=== PATIENT | female | born 1955 | race American Indian/Alaskan Native ===

== ENCOUNTER 2019-03-07 21:50 | Emergency (ER) | payer MEDICARE, OTHER ==
[2019-03-07] MEDS ORDERED: NACL 0.9% 1000 ML 2,000 ML IV ONE (22:56)
[2019-03-07 23:19] LABS: Hematocrit 37.7 % (30.3-42.9); Hemoglobin 12.7 gm/dl (10.1-14.3); Mean Corpuscular HGB Conc 34 % (30-34); Mean Corpuscular Volume 86 fl (79-97); Platelet Count 204 K/mm3 (140-440); Red Blood Count 4.37 M/mm3 (3.65-5.03); Red Cell Distribution Width 15.3 % (13.2-15.2)
[2019-03-07 23:33] LABS: Albumin 4.1 g/dL (3.9-5); Calcium 9.6 mg/dL (8.4-10.2)
[2019-03-07 23:39] LABS: Bilirubin,Urine NEG (Negative); Blood,Urine NEG (Negative); Color,Urine Yellow (Yellow); Mucus,Urine 3+ /HPF; Protein,Urine <15 mg/dL mg/dL (Negative); Urobilinogen,Urine < 2.0 mg/dL (<2.0)
--- NOTE | 2019-03-07 23:57 | XRay Report ---
PROCEDURE: XR CHEST 1V AP TECHNIQUE: Chest radiograph single view. HISTORY: weak , low bp COMPARISONS: None . FINDINGS: Heart: Normal. Mediastinum/Vessels: Normal. Lungs/Pleural space: Normal. Bony thorax: No acute osseous abnormality. Life support devices: None. IMPRESSION: No acute cardiopulmonary abnormality. This document is electronically signed by Antonia Rucker DO., March 07 2019 11:55:08 PM ET
--- NOTE | 2019-03-08 00:56 | Cat Scan Report ---
PROCEDURE: CT ABDOMEN PELVIS WO CON TECHNIQUE: Routine axial imaging was obtained of the abdomen and pelvis without oral or IV contrast. Sagittal and coronal reconstructions were reviewed. HISTORY: weak hx fo diarrhea COMPARISONS: None FINDINGS: Images through the lung bases reveal bilateral small effusions. There is a 7.1 mm noncalcified nodule in the left lower lobe. The liver is normal in size and reveal scattered benign appearing calcifications. The gallbladder and biliary tree appear normal. The pancreas, spleen, and adrenal glands appear normal. The kidneys show no evidence of hydronephrosis. There is a 1 mm nonobstructing calcifications centrally in the left k idney. The abdominal aorta is normal in caliber. The bowel loops are normal in caliber. There is circumferential mucosal thickening in the colon exten ding from the mid transverse colon to include the descending colon and sigmoid colon compatible with colitis. The appendix is not enlarged. The small bowel loops are normal in caliber. There is a small umbilical hernia containing omental fat. There is no evidence of free fluid or adeno maryann. In the pelvis the uterus and bladder appear normal. The skeletal structures reveal degenerativ e arthritic changes of the lower lumbar spine. IMPRESSION: Nonspecific colitis involving the mid transverse colon, descending colon and sigmoid colon. Small pleural effusions. 7.1 mm noncalcified nodule on the left lower lobe. Follow-up study is recomm ended in 3-6 months to confirm stability. Scattered calcifications in the liver most likely inflammatory in origin. Small umbilical hernia containing omental fat. Degenerative arthritic changes in the lower lumbar spine.. This document is electronically signed by Harvey Edmonds MD., March 08 2019 12:55:02 AM ET
--- NOTE | 2019-03-08 01:06 | Emergency Department Report ---
ED General Adult HPI - General Chief complaint: Weakness Stated complaint: DIZZINESS/DIARRHEA Time Seen by Provider: 03/07/19 22:12 Source: patient, family, EMS (ems notes not available at time of chart dictation), RN notes reviewed Mode of arrival: Stretcher Limitations: Physical Limitation, Other (patient is demented. Patient is a poor historian.) - History of Present Illness Initial comments: Physician 63-year-old female. The patient is not known to this provider previously. Patient is a resident at a local assisted living facility. The patient presents to the emergency room today with a complaint of "I don't know which wrong with me." Apparently, the patient was sent to the emergency room by her assisted-living facility for evaluation of diarrhea. The patient doesn't know how long she's been having diarrhea 4. She denies physical pain at this time. She is asking to eat and drink. Apparently, the patient was found with an unknown pill next to her, questionable diet pill. She's not sure what it is. She doesn't believe that she is taking it, but she is not certain. The patient is accompanied by her brother, Mr. Andrea Murphy; [phone] He reports the patient appears to be at her baseline. He does not think that there is anything quite out of the ordinary about her today. He is currently asking to take her back to [facility] -: unknown (apparently diarrhea happened today. However, patient cannot recall.) Severity scale (0 -10): 0 Quality: other (patient not able to describe qualitative nature of symptoms, and she reports that she's not having any symptoms, with the exception of resolved diarrhea.) Consistency: other (there is no consistency that the patient can recall.) Improves with: other (patient indicates no exacerbating or relieving factors that she is aware of.) - Related Data Previous Rx's Medication Instructions Recorded Last Taken Type Ciprofloxacin HCl [Cipro] 500 mg PO BID #10 tablet 03/08/19 Unknown Rx metroNIDAZOLE [Flagyl] 500 mg PO Q8HR #15 tab 03/08/19 Unknown Rx Allergies Allergy/AdvReac Type Severity Reaction Status Date / Time insulin detemir Allergy Unknown Verified 03/07/19 22:15 [From Levemir U-100 Insulin] metformin Allergy Unknown Verified 03/07/19 22:15 pravastatin [From Pravachol] Allergy Unknown Verified 03/07/19 22:15 simvastatin Allergy Unknown Verified 03/07/19 22:15 ED Review of Systems ROS: Stated complaint: DIZZINESS/DIARRHEA Other details as noted in HPI Constitutional: malaise, weakness. denies: fever Eyes: denies: vision change ENT: denies: epistaxis Respiratory: denies: wheezing Cardiovascular: denies: chest pain Gastrointestinal: diarrhea. denies: nausea, vomiting Genitourinary: denies: dysuria Musculoskeletal: denies: back pain Skin: denies: lesions Neurological: weakness (chronic weakness), confusion (chronic confusion) ED Past Medical Hx - Past Medical History Previous Medical History?: Yes Hx Diabetes: Yes Hx Dementia: Yes Additional medical history: hypothyroidism, hypercholesterolemia - Surgical History Past Surgical History?: Yes Additional Surgical History: tubal ligation - Social History Smoking Status: Never Smoker Substance Use Type: None - Medications Home Medications: Home Medications Medication Instructions Recorded Confirmed Last Taken Type Ciprofloxacin HCl [Cipro] 500 mg PO BID #10 tablet 03/08/19 Unknown Rx metroNIDAZOLE [Flagyl] 500 mg PO Q8HR #15 tab 03/08/19 Unknown Rx ED Physical Exam - General Limitations: Other (patient is demented. Patient is a poor historian) General appearance: alert, in no apparent distress - Head Head exam: Present: atraumatic, normocephalic - Eye Eye exam: Present: normal appearance, EOMI. Absent: nystagmus - ENT ENT exam: Present: normal exam, normal orophraynx, mucous membranes moist, normal external ear exam - Neck Neck exam: Present: normal inspection, full ROM. Absent: tenderness, meningismus - Respiratory Respiratory exam: Present: normal lung sounds bilaterally. Absent: respiratory distress - Cardiovascular Cardiovascular Exam: Present: regular rate, normal rhythm, normal heart sounds. Absent: bradycardia, tachycardia, irregular rhythm, systolic murmur, diastolic murmur, rubs, gallop - GI/Abdominal GI/Abdominal exam: Present: soft. Absent: distended, tenderness, guarding, rebound, rigid, pulsatile mass - Rectal Rectal exam: Present: normal inspection, other (chaperoned by CHARLINE Guardado). Absent: heme (-) stool, black stool, bloody stool - Extremities Exam Extremities exam: Present: normal inspection, full ROM, other (2+ pulses noted in the bilateral upper, lower extremities. Compartments soft. No long bony tenderness. The pelvis is stable.). Absent: tenderness, joint swelling, calf tenderness - Back Exam Back exam: Present: normal inspection, full ROM. Absent: tenderness, CVA tenderness (R), paraspinal tenderness, vertebral tenderness - Neurological Exam Neurological exam: Present: alert (history is alert to name. Patient follows commands.), other (Extraocular movements intact. Tongue midline. No facial droop. Facial sensation intact to light touch in the V1, V2, V3 distribution bilaterally. 5 and 5 strength in 4 extremities.. Sensation is intact to light touch in 4 extremities.). Absent: motor sensory deficit - Psychiatric Psychiatric exam: Present: flat affect - Skin Skin exam: Present: warm, dry, intact, normal color. Absent: rash ED Course Vital Signs 03/07/19 03/07/19 03/07/19 22:04 22:09 23:37 Temperature 98.2 F 99.3 F Pulse Rate 87 Respiratory 12 15 Rate Blood Pressure 96/60 Blood Pressure 96/60 [Right] O2 Sat by Pulse 96 100 Oximetry 03/08/19 00:00 Temperature Pulse Rate 82 Respiratory 15 Rate Blood Pressure 96/62 Blood Pressure [Right] O2 Sat by Pulse 95 Oximetry - Reevaluation(s) Reevaluation #1: 03/08/19 01:14 Serum toxicology studies unremarkable. Medications reviewed at this point in time. Reevaluation #2: 03/08/19 01:22 Blood pressure 102/70. It is improving. Belly soft on repeat exam. Patient suitable for discharge. ED Medical Decision Making - Lab Data Result diagrams: 03/07/19 22:53 03/07/19 22:53 Vital Signs 03/07/19 03/07/19 03/07/19 22:04 22:09 23:37 Temperature 98.2 F 99.3 F Pulse Rate 87 Respiratory 12 15 Rate Blood Pressure 96/60 Blood Pressure 96/60 [Right] O2 Sat by Pulse 96 100 Oximetry 03/08/19 00:00 Temperature Pulse Rate 82 Respiratory 15 Rate Blood Pressure 96/62 Blood Pressure [Right] O2 Sat by Pulse 95 Oximetry Lab Results 03/07/19 03/07/19 03/07/19 Range/Units 22:53 22:53 23:00 WBC 8.7 (4.5-11.0) K/mm3 RBC 4.37 (3.65-5.03) M/mm3 Hgb 12.7 (10.1-14.3) gm/dl Hct 37.7 (30.3-42.9) % MCV 86 (79-97) fl MCH 29 (28-32) pg MCHC 34 (30-34) % RDW 15.3 H (13.2-15.2) % Plt Count 204 (140-440) K/mm3 Sodium 139 (137-145) mmol/L Potassium 3.9 (3.6-5.0) mmol/L Chloride 100.7 (98-107) mmol/L Carbon Dioxide 26 (22-30) mmol/L Anion Gap 16 mmol/L BUN 7 (7-17) mg/dL Creatinine 1.5 H (0.7-1.2) mg/dL Estimated GFR 42 ml/min BUN/Creatinine Ratio 5 % Glucose 207 H (65-100) mg/dL Calcium 9.6 (8.4-10.2) mg/dL Magnesium 2.10 (1.7-2.3) mg/dL Total Bilirubin 0.60 (0.1-1.2) mg/dL AST 21 (5-40) units/L ALT 14 (7-56) units/L Alkaline Phosphatase 76 (35-129) units/L Total Creatine Kinase 241 H (30-135) units/L Total Protein 6.6 (6.3-8.2) g/dL Albumin 4.1 (3.9-5) g/dL Albumin/Globulin Ratio 1.6 % Lipase 17 (13-60) units/L Urine Color Yellow (Yellow) Urine Turbidity Slightly-cloudy (Clear) Urine pH 5.0 (5.0-7.0) Ur Specific [place] 1.009 (1.003-1.030) Urine Protein <15 mg/dl (Negative) mg/dL Urine Glucose (UA) Neg (Negative) mg/dL Urine Ketones Neg (Negative) mg/dL Urine Blood Neg (Negative) Urine Nitrite Neg (Negative) Urine Bilirubin Neg (Negative) Urine Urobilinogen < 2.0 (<2.0) mg/dL Ur Leukocyte Esterase Neg (Negative) Urine WBC (Auto) 6.0 (0.0-6.0) /HPF Urine RBC (Auto) 1.0 (0.0-6.0) /HPF U Epithel Cells (Auto) < 1.0 (0-13.0) /HPF Urine Mucus 3+ /HPF Salicylates (2.8-20.0) mg/dL Acetaminophen (10.0-30.0) ug/mL 03/07/19 03/07/19 Range/Units 23:18 23:18 WBC (4.5-11.0) K/mm3 RBC (3.65-5.03) M/mm3 Hgb (10.1-14.3) gm/dl Hct (30.3-42.9) % MCV (79-97) fl MCH (28-32) pg MCHC (30-34) % RDW (13.2-15.2) % Plt Count (140-440) K/mm3 Sodium (137-145) mmol/L Potassium (3.6-5.0) mmol/L Chloride (98-107) mmol/L Carbon Dioxide (22-30) mmol/L Anion Gap mmol/L BUN (7-17) mg/dL Creatinine (0.7-1.2) mg/dL Estimated GFR ml/min BUN/Creatinine Ratio % Glucose (65-100) mg/dL Calcium (8.4-10.2) mg/dL Magnesium (1.7-2.3) mg/dL Total Bilirubin (0.1-1.2) mg/dL AST (5-40) units/L ALT (7-56) units/L Alkaline Phosphatase (35-129) units/L Total Creatine Kinase (30-135) units/L Total Protein (6.3-8.2) g/dL Albumin (3.9-5) g/dL Albumin/Globulin Ratio % Lipase (13-60) units/L Urine Color (Yellow) Urine Turbidity (Clear) Urine pH (5.0-7.0) Ur Specific [place] (1.003-1.030) Urine Protein (Negative) mg/dL Urine Glucose (UA) (Negative) mg/dL Urine Ketones (Negative) mg/dL Urine Blood (Negative) Urine Nitrite (Negative) Urine Bilirubin (Negative) Urine Urobilinogen (<2.0) mg/dL Ur Leukocyte Esterase (Negative) Urine WBC (Auto) (0.0-6.0) /HPF Urine RBC (Auto) (0.0-6.0) /HPF U Epithel Cells (Auto) (0-13.0) /HPF Urine Mucus /HPF Salicylates < 0.3 L (2.8-20.0) mg/dL Acetaminophen < 5.0 L (10.0-30.0) ug/mL - EKG Data -: EKG Interpreted by Ak EKG shows normal: sinus rhythm, axis (there is a right axis deviation.) - EKG Data When compared to previous EKG there are: previous EKG unavailable 03/08/19 01:10 This is a normal sinus rhythm, 80 bpm, right axis deviation, borderline left posterior fascicular block, low voltage, poor R-wave progression, not having chest pain, this is an abnormal EKG, this EKG is not consistent with an ST elevation myocardial infarction. There is a prolonged OK interval, suggestive of first-degree AV block. 03/08/19 01:11 - Radiology Data Radiology results: report reviewed, image reviewed Print Report Referring Physician: JOSSE SAL Patient Name: JOSE D HUIZAR Date of : 1955 Sex: Female Report Date: 2019-03-08 Report Status: Finalized Findings [facility] [address] [place] [address] Cat Scan Report Signed Patient: JOSE D HUIZAR MR#: [id number] 91 : 1955 Acct:[id number] Age/Sex: 63 / F ADM Date: 03/07/19 Loc: ED Attending Dr: Ordering Physician: JOSSE SAL MD Date of Service: 03/08/19 Procedure(s): CT abdomen pelvis wo con Accession Number(s): [id number] cc: JOSSE SAL MD PROCEDURE: CT ABDOMEN PELVIS WO CON TECHNIQUE: Routine axial imaging was obtained of the abdomen and pelvis without oral or IV contrast. Sagittal and coronal reconstructions were reviewed. HISTORY: weak hx fo diarrhea COMPARISONS: None FINDINGS: Images through the lung bases reveal bilateral small effusions. There is a 7.1 mm noncalcified nodule in the left lower lobe. The liver is normal in size and reveal scattered benign appearing calcifications. The gallbladder and biliary tree appear normal. The pancreas, spleen, and adrenal glands appear normal. The kidneys show no evidence of hydronephrosis. There is a 1 mm nonobstructing calcifications centrally in the left kidney. The abdominal aorta is normal in caliber. The bowel loops are normal in caliber. There is circumferential mucosal thickening in the colon extending from the mid transverse colon to include the descending colon and sigmoid colon compatible with colitis. The appendix is not enlarged. The small bowel loops are normal in caliber. There is a small umbilical hernia containing omental fat. There is no evidence of free fluid or adenopathy. In the pelvis the uterus and bladder appear normal. The skeletal structures reveal degenerative arthritic changes of the lower lumbar spine. IMPRESSION: Nonspecific colitis involving the mid tr ansverse colon, descending colon and sigmoid colon. Small pleural effusions. 7.1 mm noncalcified nodule on the left lower lobe. Follow-up study is recommended in 3-6 months to confirm stability. Scattered calcifications in the liver most likely inflammatory in origin. Small umbilical hernia containing omental fat. Degenerative arthritic changes in the lower lumbar spine.. This document is electronically signed by Conrado Edmonds MD., March 08 2019 12:55:02 AM ET Transcribed By: RB Dictated By: CONRADO EDMONDS MD Electronically Authenticated By: CONRADO EDMONDS MD Signed Date/Time: 03/08/1956 DD/ 0008 TD/TT: 03/08/1949 Print Report Referring Physician: JOSSE SAL Patient Name: JOSE D HUIZAR Date of : 1955 Sex: Female Report Date: 2019-03-07 Report Status: Finalized Findings [address] [address] XRay Report Signed Patient: JOSE D HUIZAR MR#: [id number] 91 : 1955 Acct:[id number] Age/Sex: 63 / F ADM Date: 03/07/19 Loc: ED Attending Dr: Ordering Physician: JOSSE SAL MD Date of Service: 03/07/19 Procedure(s): XR chest 1V ap Accession Number(s): [id number] cc: JOSSE SAL MD Fluoro Time In Minutes: PROCEDURE: XR CHEST 1V AP TECHNIQUE: Chest radiograph single view. HISTORY: weak , low bp COMPARISONS: None . FINDINGS: Heart: Normal. Mediastinum/Vessels: Normal. Lungs/Pleural space: Normal. Bony thorax: No acute osseous abnormality. Life support devices: None. IMPRESSION: No acute cardiopulmonary abnormality. This document is electronically signed by Antonia Escalante DO., March 07 2019 11:55:08 PM ET Transcribed By: [facility] Dictated By: ANTONIA ESCALANTE MD Electronically Authenticated By: ANTONIA ESCALANTE MD Signed Date/Time: 03/07/192356 DD/ 36 TD/TT: 03/07/192336 - Medical Decision Making Differential diagnosis, including but not limited to: Pneumonia, urinary tract infection, dehydration, enteritis, colitis Assessment and plan: 63-year-old female sent to the emergency room for reported diarrhea. Blood pressure in the high 90s. Appears pleasant, calm and cooperative. Tolerating liquid feeds at this time. Laboratory studies basically unremarkable, has very mild renal insufficiency. X-ray of the chest not consistent with pneumonia, urinalysis is not consistent with urinary tract infection. CT scan suggests a possible transverse to distal colitis. The patient is suitable for a trial of oral outpatient antibiotics. She will be given IV fluids in the emergency room. She will be started on ciprofloxacin and Flagyl. She will need to follow up with outpatient primary care, and/or gastroenterology. Critical care attestation.: If time is entered above; I have spent that time in minutes in the direct care of this critically ill patient, excluding procedure time. ED Disposition Clinical Impression: History of diarrhea, Renal insufficiency Disposition: DC/TX-70 ANOTHER TYPE HLTHCARE Is pt being admited?: No Does the pt Need Aspirin: No Condition: Stable Instructions: Infectious Colitis (ED), Impaired Kidney Function (ED) Additional Instructions: Drink 4-6 cups of border per day for the next 7 days. Avoid consumption of Motrin ibuprofen, Naprosyn, Aleve. CT scan of the abdomen and pelvis suggests nonspecific inflammation of the large intestine. This may be coming from an infection, or cancer, tumor, malignancy. Take antibiotics as directed, does not consume alcohol, and follow up with a mail handler within the next 4-6 weeks. Not following up with GI as recommended may resultant undiagnosed tumor, cancer, malignancy. EKG today was incidentally abnormal, without prior for comparison. Please follow-up with a primary care doctor or commercial escrow officer within the next 4-6 weeks for incidentally abnormal EKG. CT scan of the abdomen and pelvis demonstrated nonspecific nodules in the left lower lung. Please follow-up with her primary care doctor for this within the next 3-6 months. Not following up as recommended may resultant undiagnosed cancer, tumor, malignancy. Please return to the emergency room right away with few pain, worsened pain, migration of pain, rectal vomiting, change in mental status, confusion, new, worse or different symptoms. Laboratory studies demonstrated mild decrease in kidney function, likely secondary to dehydration. Follow up with the primary care doctor, or fitness/wellness director within the next month to have this further evaluated. Prescriptions: Ciprofloxacin HCl [Cipro] 500 mg PO BID #10 tablet metroNIDAZOLE [Flagyl] 500 mg PO Q8HR #15 tab Referrals: DIMITRIOS OLSON MD [Staff Physician] - 3-5 Days (Kidney specialist) LIYA SOTO MD [Staff Physician] - 3-5 Days (Dry Chain Puller) [facility] [Provider Group] - 3-5 Days (Dry Chain Puller) [facility] [Provider Group] - 3-5 Days (Cardiology) [facility] [Provider Group] - 3-5 Days
[2019-03-08] MEDS ORDERED: FLAGYL PO ONE (01:22)
[2019-03-08] MEDS ORDERED: LEVAQUIN PO ONE (01:22)
[2019-03-08 02:12] VITALS: BP 114/60
== END 2019-03-08 01:58 | disposition other institution (70) ==
LOC: ED 21:50
DX: N28.9 Disorder of kidney and ureter, unspecified (principal); R19.7 Diarrhea, unspecified; E11.9 Type 2 diabetes mellitus without complications; F03.90 Unspecified dementia, unspecified severity, without behavioral disturbance, psychotic disturbance, mood disturbance, and anxiety; E78.00 Pure hypercholesterolemia, unspecified; E03.9 Hypothyroidism, unspecified; Z98.51 Tubal ligation status; Z88.6 Allergy status to analgesic agent; Z88.8 Allergy status to other drugs, medicaments and biological substances
CPT/HCPCS: 36415; 71045; 74176; 80053; 81001; 82550; 83690; 83735; 85027; 93005; 93010; 96360; 96361; 99285; G0480; J7030; 80320